=== PATIENT | female | born 1960 | race Caucasian/White ===

== ENCOUNTER 2024-12-26 11:10 | Emergency (ER) | payer OTHER, SELFPAY ==
[2024-12-26] MEDS ORDERED: Aspirin Chewable 81 MG TAB ONE (11:42)
[2024-12-26 11:46] LABS: Hematocrit 36.4 % (36.0-47.0); Hemoglobin 12.8 g/dL (12.0-16.0); Mean Corpuscular Hemoglobin 33.0 pg (27.0-31.0); Mean Corpuscular Volume 93.5 fl (78.0-98.0); Platelet Count 414 10x3/uL (130-400); Red Blood Cell (RBC) Count 3.89 mill/uL (4.20-5.40); White Blood Cell (WBC) Count 7.9 10x3/uL (4.8-10.8)
[2024-12-26] MEDS ORDERED: Prochlorperazine 10 MG/2 ML VIAL ONE (11:47)
[2024-12-26 12:04] LABS: ALT (SGPT) 10 U/L (Less than 34); AST (SGOT) 22 U/L (11-34); Albumin 4.2 g/dL (3.1-4.5); Alkaline Phosphatase 58 U/L (40-110); Anion Gap 17 mmol/L (10-20); BUN (Urea Nitrogen) 10 mg/dL (9.8-20.1); Bilirubin, Total 0.2 mg/dL (0.3-1.2); Calc. Creatinine Clearance 0 mL/min (70-130); Calcium 9.8 mg/dL (7.8-10.44); Carbon Dioxide 23 mmol/L (23-31); Chloride 104 mmol/L (98-107); Globulin 3.3 g/dL (2.4-3.5); Glucose 99 mg/dL (80-115); Potassium 3.8 mmol/L (3.5-5.1); Sodium 140 mmol/L (136-145)
[2024-12-26 12:05] LABS: Troponin I Less than 0.010 ng/mL (< 0.028)
[2024-12-26 12:07] LABS: MDiff Complete? YES
== END 2024-12-26 15:13 | disposition short-term general hospital (02) ==
LOC: BURERS 11:10
DX: R07.9 Chest pain, unspecified (principal); I10 Essential (primary) hypertension; J44.9 Chronic obstructive pulmonary disease, unspecified; M79.7 Fibromyalgia; F17.210 Nicotine dependence, cigarettes, uncomplicated; Z79.51 Long term (current) use of inhaled steroids; Z79.899 Other long term (current) drug therapy
CPT/HCPCS: 71045; 80053; 83880; 84484; 85025; 93005; 96374; J0780

== ENCOUNTER 2025-02-20 16:28 | Emergency (ER) | payer OTHER ==
[2025-02-20] MEDS ORDERED: Bacitracin 1 PK ONE (17:32)
[2025-02-20] MEDS ORDERED: Boostrix 0.5 ML (Tdap) VIAL (>/=7 yrs of age) ONE (17:33)
== END 2025-02-20 18:46 | disposition home or self-care (01) ==
LOC: BURERS 16:28
DX: S80.02XA Contusion of left knee, initial encounter (principal); S80.01XA Contusion of right knee, initial encounter; S60.512A Abrasion of left hand, initial encounter; R60.9 Edema, unspecified; I10 Essential (primary) hypertension; J44.9 Chronic obstructive pulmonary disease, unspecified; F17.210 Nicotine dependence, cigarettes, uncomplicated; W18.30XA Fall on same level, unspecified, initial encounter; Y93.01 Activity, walking, marching and hiking; Y92.410 Unspecified street and highway as the place of occurrence of the external cause; Z79.899 Other long term (current) drug therapy; Z79.51 Long term (current) use of inhaled steroids; Z23 Encounter for immunization
CPT/HCPCS: 72170; 90471; 90715; 96372; J1885

== ENCOUNTER 2025-03-20 14:44 | Emergency (ER) | payer OTHER ==
[~2025-03-20 14:44] MED LIST: Iopamidol 370 76% 100 ML VIAL ONE
[2025-03-20 15:13] LABS: Hematocrit 30.8 % (36.0-47.0); Hemoglobin 11.2 g/dL (12.0-16.0); Mean Corpuscular Hemoglobin 31.6 pg (27.0-31.0); Mean Corpuscular Volume 86.7 fl (78.0-98.0); Platelet Count 331 10x3/uL (130-400); Red Blood Cell (RBC) Count 3.55 mill/uL (4.20-5.40); White Blood Cell (WBC) Count 8.3 10x3/uL (4.8-10.8)
[2025-03-20 15:17] LABS: INR-International Normal Ratio 0.8; Prothrombin Time 11.6 sec (12.0-14.7)
[2025-03-20 15:18] LABS: PTT 28.1 sec (22.9-36.1)
[2025-03-20 15:26] LABS: ALT (SGPT) 15 U/L (Less than 34); AST (SGOT) 28 U/L (11-34); Albumin 3.8 g/dL (3.1-4.5); Alkaline Phosphatase 82 U/L (40-110); Anion Gap 17 mmol/L (10-20); BUN (Urea Nitrogen) 14 mg/dL (9.8-20.1); Bilirubin, Total 0.1 mg/dL (0.3-1.2); Calc. Creatinine Clearance 0 mL/min (70-130); Calcium 8.9 mg/dL (7.8-10.44); Carbon Dioxide 20 mmol/L (23-31); Chloride 111 mmol/L (98-107); Globulin 3.4 g/dL (2.4-3.5); Glucose 102 mg/dL (80-115); Potassium 3.9 mmol/L (3.5-5.1); Sodium 144 mmol/L (136-145)
[2025-03-20 15:45] LABS: MDiff Complete? YES
[2025-03-20] MEDS ORDERED: Acetaminophen 500 MG TAB ONE (16:36)
== END 2025-03-20 16:55 | disposition home or self-care (01) ==
LOC: BURERS 14:44 → EEVIPCON 14:44 → BURERS 16:55
DX: S10.83XA Contusion of other specified part of neck, initial encounter (principal); I10 Essential (primary) hypertension; J44.9 Chronic obstructive pulmonary disease, unspecified; M79.7 Fibromyalgia; F17.210 Nicotine dependence, cigarettes, uncomplicated; Z79.899 Other long term (current) drug therapy; Z79.51 Long term (current) use of inhaled steroids; Y04.2XXA Assault by strike against or bumped into by another person, initial encounter; Y92.009 Unspecified place in unspecified non-institutional (private) residence as the place of occurrence of the external cause
CPT/HCPCS: 70450; 70492; 72125; 72128; 72131; 80053; 80307; 85025; 85610; 85730; Q9967

== ENCOUNTER 2025-05-02 11:48 | Emergency (ER) | payer OTHER ==
[2025-05-02] MEDS ORDERED: Ketamine 50 MG/ML (10ML VIAL) ONE (12:23)
[2025-05-02 13:43] LABS: INR-International Normal Ratio 1.0; Prothrombin Time 12.8 sec (12.0-14.7)
[2025-05-02] MEDS ORDERED: Ketorolac Tromethamine 30 MG (1 mL) VIAL ONE (13:44)
[2025-05-02 13:51] LABS: ALT (SGPT) 10 U/L (Less than 34); AST (SGOT) 27 U/L (11-34); Albumin 4.5 g/dL (3.1-4.5); Alkaline Phosphatase 97 U/L (40-110); Anion Gap 23 mmol/L (10-20); BUN (Urea Nitrogen) 21 mg/dL (9.8-20.1); Bilirubin, Total 0.1 mg/dL (0.3-1.2); Calc. Creatinine Clearance 0 mL/min (70-130); Calcium 8.9 mg/dL (7.8-10.44); Carbon Dioxide 17 mmol/L (23-31); Chloride 106 mmol/L (98-107); Globulin 3.8 g/dL (2.4-3.5); Glucose 99 mg/dL (80-115); Potassium 4.0 mmol/L (3.5-5.1); Sodium 142 mmol/L (136-145)
[2025-05-02 13:54] LABS: Hematocrit 42.9 % (36.0-47.0); Hemoglobin 13.3 g/dL (12.0-16.0); Mean Corpuscular Hemoglobin 30.1 pg (27.0-31.0); Mean Corpuscular Volume 97.2 fl (78.0-98.0); Platelet Count 552 10x3/uL (130-400); Red Blood Cell (RBC) Count 4.42 mill/uL (4.20-5.40); White Blood Cell (WBC) Count 11.5 10x3/uL (4.8-10.8)
[2025-05-02 14:09] LABS: MDiff Complete? YES
== END 2025-05-02 16:02 | disposition short-term general hospital (02) ==
LOC: BURERS 11:48
DX: S43.014A Anterior dislocation of right humerus, initial encounter (principal); J44.9 Chronic obstructive pulmonary disease, unspecified; I10 Essential (primary) hypertension; F17.210 Nicotine dependence, cigarettes, uncomplicated; Z79.899 Other long term (current) drug therapy; Z79.51 Long term (current) use of inhaled steroids; W01.0XXA Fall on same level from slipping, tripping and stumbling without subsequent striking against object, initial encounter
CPT/HCPCS: 80053; 85025; 85610; 96372; 96374; 96375; 96376; 99152; 99153; J1885; J2270; J3010